=== PATIENT | female | born 1945 | race African-American/Black ===

== ENCOUNTER → 2017-07-27 | Outpatient (CLI) | payer MEDICARE ==
[2015-05-01 11:55] VITALS: BP 129/78
[~2017-07-27] MED LIST: AMLO5TAB2 PO; CIPR500T94 PO; GLUC100018 PO; MULT-460 PO; OXYB5TAB7 PO
--- NOTE | 2017-07-27 19:40 | CARD ---
APPROVED REPORT EXAM: Two-dimensional and M-mode echocardiogram with Doppler and color Doppler. Other Information Quality : Average Rhythm : NSR INDICATION Dyspnea Mitral Valve Disease 2D DIMENSIONS RVDd2.8 (2.9-3.5cm)Left Atrium(2D)2.9 (1.6-4.0cm) IVSd1.5 (0.7-1.1cm)Aortic Root(2D)2.7 (2.0-3.7cm) LVDd2.8 (3.9-5.9cm)LVOT Diameter1.9 (1.8-2.4cm) PWd1.5 (0.7-1.1cm)LVDs2.3 (2.5-4.0cm) SV12.4 mlLVEF(%)60.0 (>50%) Aortic Valve AoV Peak Deshawn.119.0cm/sAoV VTI22.3cm AO Peak GR.5.7mmHgLVOT Peak Deshawn.86.8cm/s LVOT VTI 16.55cmAO Mean GR.3mmHg VLAD (VMAX)2.27io6RNM (VTI)2.10cm2 Mitral Valve MV E Idcwojib90.8cm/sMV DECEL DAVF446no MV A Uhnicqun40.5cm/sMV MZU28ee E/A Ratio0.7MV A Lzhdehmg74ab MVA (PHT)2.71cm2 TDI E/Lateral E'9.1E/Medial E'14.5 Pulmonary Valve PV Peak Mxjkijnw25.0cm/sPV Peak Grad.3mmHg RVOT VTI15.1cm Tricuspid Valve TR P. Mkptdyvv641em/sRAP MTUWNZTW4htKc TR Peak Gr.03ncQqPGHH98qfPn LEFT VENTRICLE The left ventricle is normal size. There is mild concentric left ventricular hypertrophy. Left ventri savita systolic function is normal. The Ejection Fraction is 60%. There is normal LV segmental wall laine on. Tissue Doppler imaging reveals mild left ventricular diastolic dysfunction. Transmitral Doppler f low pattern is Grade I-abnormal relaxation pattern. There is no ventricular septal defect visualized. RIGHT VENTRICLE The right ventricle is normal size. The right ventricular systolic function is normal. ATRIA The left atrium size is normal. The right atrium size is normal. The interatrial septum is intact wit h no evidence for an atrial septal defect or patent foramen ovale as noted on 2-D or Doppler imaging. AORTIC VALVE The aortic valve is mildly calcified. The aortic valve is trileaflet. Doppler and Color Flow revealed no significant aortic regurgitation. There is no significant aortic valvular stenosis. MITRAL VALVE Mitral annular calcification is mild. The posterior mitral valve leafletappear myxomatous. There is n o mitral valve stenosis. Doppler and Color Flow revealed no mitral valve regurgitation noted. TRICUSPID VALVE The tricuspid valve is normal in structure. Doppler and Color Flow revealed mild tricuspid regurgitat ion. The PA pressure was estimated at 32 mmHg. There is no tricuspid valve stenosis. PULMONIC VALVE The pulmonic valve is not well visualized. Doppler and Color Flow revealed no pulmonic valvular regur gitation. There is no pulmonic valvular stenosis. GREAT VESSELS The aortic root is normal in size. The ascending aorta is normal in size. Normal pulmonary venous caitlin w (Doppler). The IVC is normal in size and collapses >50% with inspiration. PERICARDIAL EFFUSION There is no evidence of significant pericardial effusion. Critical Notification Critical Value: No <Conclusion> Left ventricle systolic function is normal. The Ejection Fraction is 60%. Tissue Doppler imaging reveals mild left ventricular diastolic dysfunction. Transmitral Doppler flow pattern is Grade I-abnormal relaxation pattern. There is mild concentric left ventricular hypertrophy. The left atrium size is normal. The right atrium size is normal. The aortic valve is mildly calcified. The aortic valve is trileaflet. Doppler and Color Flow revealed no significant aortic regurgitation. Doppler and Color Flow revealed no mitral valve regurgitation noted. Mitral annular calcification is mild. The posterior mitral valve leafletappear myxomatous. Doppler and Color Flow revealed mild tricuspid regurgitation. The PA pressure was estimated at 32 mmHg. The pulmonic valve is not well visualized. There is no evidence of significant pericardial effusion.
== END | disposition home or self-care (01) ==
LOC: ECHO 11:10
PROVIDERS: ATTEND Internal Medicine Cardiovascular Disease
DX: I08.1 Rheumatic disorders of both mitral and tricuspid valves (principal); R06.02 Shortness of breath
CPT/HCPCS: 93306

== ENCOUNTER → 2017-09-08 | Outpatient (CLI) | payer MEDICARE, BC ==
[2015-05-01 11:55] VITALS: BP 129/78
== END | disposition home or self-care (01) ==
LOC: LAB 11:07
PROVIDERS: ATTEND Orthopaedic Surgery Sports Medicine
DX: M25.561 Pain in right knee (principal)
CPT/HCPCS: 36415; 85651; 86140

== ENCOUNTER → 2018-02-01 | Outpatient (CLI) | payer MEDICARE, BC | END | disposition home or self-care (01) | LOC: ECHO 13:38 | DX: I08.1 Rheumatic disorders of both mitral and tricuspid valves (principal); I27.20 Pulmonary hypertension, unspecified | CPT/HCPCS: 93306 ==

== ENCOUNTER → 2018-08-19 | Outpatient (CLI) | payer MEDICARE, BC ==
[2015-05-01 11:55] VITALS: BP 129/78
[~2018-08-19] MED LIST changes: -AMLO5TAB2 PO; +AMLO5TAB7 PO
--- NOTE | 2018-08-22 13:21 | CARD ---
MR#: [id number] Date of Study: 08/19/2018 Ordering Physician: MENG DAVILA, Referring Physician: MENG DAVILA, Tech: Randi Olivia ANTHONY APPROVED REPORT EXAM: Two-dimensional and M-mode echocardiogram with Doppler and color Doppler. Other Information Quality : GoodHR: 93bpm Rhythm : NSR INDICATION Mitral Valve Disease 2D DIMENSIONS RVDd2.9 (2.9-3.5cm)Left Atrium(2D)3.2 (1.6-4.0cm) IVSd1.4 (0.7-1.1cm)Aortic Root(2D)2.6 (2.0-3.7cm) LVDd3.9 (3.9-5.9cm)LVOT Diameter1.8 (1.8-2.4cm) PWd0.8 (0.7-1.1cm)LVDs2.8 (2.5-4.0cm) FS (%) 28.5 %SV36.8 ml LVEF(%)55.0 (>50%) Aortic Valve AoV Peak Deshawn.140.3cm/sAoV VTI28.0cm AO Peak GR.7.9mmHgLVOT Peak Deshawn.89.0cm/s AO Mean GR.5mmHgAVA (VMAX)1.66cm2 VLAD (VTI)1.70cm2 Mitral Valve MV E Fphuhhtd186.8cm/sMV E Peak Gr.6mmHg MV DECEL QGDB254kgRM A Vhjzckai748.2cm/s MV E Mean Gr.3mmHgE/A Ratio0.9 MV A Wikhcyue306ts Pulmonary Valve PV Peak Zrlstidp08.7cm/s Tricuspid Valve TR P. Yanfadao682ef/sRAP SUJMNDNM3llWd TR Peak Gr.22biNxEFJW03wcTq LEFT VENTRICLE The left ventricle is normal size. Proximal septal thickening is noted. The left ventricular systolic function is normal and the ejection fraction is within normal range. The Ejection Fraction is 55%. T here is normal LV segmental wall motion. Transmitral Doppler flow pattern is Grade I-abnormal relaxat ion pattern. RIGHT VENTRICLE The right ventricle is normal size. There is normal right ventricular wall thickness. The right ventr icular systolic function is normal. ATRIA The left atrium size is normal. The right atrium size is normal. The interatrial septum is intact wit h no evidence for an atrial septal defect or patent foramen ovale as noted on 2-D or Doppler imaging. AORTIC VALVE The aortic valve is thickened but opens well. The aortic valve is trileaflet. Doppler and Color Flow revealed no significant aortic regurgitation. There is no significant aortic valvular stenosis. MITRAL VALVE Mitral annular calcification is mild to moderate. The mitral valve leaflets are thickened and calcifi ed. There is no evidence of mitral valve prolapse. There is no mitral valve stenosis. Doppler and Col or-flow revealed mild to moderate mitral regurgitation. TRICUSPID VALVE The tricuspid valve is normal in structure and function. Doppler and Color Flow revealed trace tricus pid regurgitation. The PA pressure was estimated at 21 mmHg. There is no tricuspid valve prolapse or vegetation. There is no tricuspid valve stenosis. PULMONIC VALVE The pulmonary valve is normal in structure Doppler and Color Flow revealed trace pulmonic valvular re gurgitation. There is no pulmonic valvular stenosis. GREAT VESSELS The aortic root is normal in size. The ascending aorta is normal in size. PERICARDIAL EFFUSION There is no evidence of significant pericardial effusion. Critical Notification Critical Value: No <Conclusion> The left ventricular systolic function is normal and the ejection fraction is within normal range. T he Ejection Fraction is 55%. Transmitral Doppler flow pattern is Grade I-abnormal relaxation pattern. Proximal septal thickening is noted. The left atrium size is normal. The right atrium size is normal. The aortic valve is thickened but opens well. The aortic valve is trileaflet. Doppler and Color-flow revealed mild to moderate mitral regurgitation. Mitral annular calcification is mild to moderate. The mitral valve leaflets are thickened and calcified. Doppler and Color Flow revealed trace tricuspid regurgitation. The PA pressure was estimated at 21 mmHg. Doppler and Color Flow revealed trace pulmonic valvular regurgitation. There is no evidence of significant pericardial effusion. Signed by : Meng Davila MD Electronically Approved : 08/22/2018 13:20:36
== END | disposition home or self-care (01) ==
LOC: ECHO 12:20
PROVIDERS: ATTEND Internal Medicine Cardiovascular Disease
DX: I34.0 Nonrheumatic mitral (valve) insufficiency (principal)
CPT/HCPCS: 93306

== ENCOUNTER → 2018-09-01 | Day surgery (SDC) | payer MEDICARE, BC ==
[~2018-09-01] MED LIST changes: +FURO-69 PO; +IV RINGERS,LACTATED 1000ML 1,000 ML IV SCH; +LIDOCAINE 1% PF 2 ML VIAL. ID PRN; +MIDAZOLAM HCL/PF 2 MG/2 ML VIAL. IV PRN; +POTA10TA12 PO; +PROPOFOL 20 ML IV ONE; +SIMV20TA3 PO; +fentaNYL PF VIAL 100 MCG/2 ML VIAL IV PRN
[2018-09-01 08:29] VITALS: BP 107/54
== END | disposition home or self-care (01) ==
LOC: ENDOS 06:13
PROVIDERS: ATTEND Internal Medicine Gastroenterology
DX: Z12.11 Encounter for screening for malignant neoplasm of colon (principal); K64.0 First degree hemorrhoids; I10 Essential (primary) hypertension; K21.9 Gastro-esophageal reflux disease without esophagitis; E78.00 Pure hypercholesterolemia, unspecified; M19.90 Unspecified osteoarthritis, unspecified site; Z79.899 Other long term (current) drug therapy; Z90.710 Acquired absence of both cervix and uterus; Z98.51 Tubal ligation status; Z98.890 Other specified postprocedural states; Z91.040 Latex allergy status; Z88.5 Allergy status to narcotic agent; Z85.3 Personal history of malignant neoplasm of breast; Z86.010 Personal history of colon polyps; Z82.49 Family history of ischemic heart disease and other diseases of the circulatory system; Z91.018 Allergy to other foods
CPT/HCPCS: G0105; J2704; 45378

== ENCOUNTER → 2020-06-12 | Outpatient (CLI) | payer MEDICARE, BC ==
[2018-09-01 08:29] VITALS: BP 107/54
[~2020-06-12] MED LIST changes: +AMLO5TAB10 PO; -AMLO5TAB7 PO; -IV RINGERS,LACTATED 1000ML 1,000 ML IV SCH; -LIDOCAINE 1% PF 2 ML VIAL. ID PRN; -MIDAZOLAM HCL/PF 2 MG/2 ML VIAL. IV PRN; +OXYB5TAB10 PO; -OXYB5TAB7 PO; -PROPOFOL 20 ML IV ONE; +SIMV20TA18 PO; -SIMV20TA3 PO; -fentaNYL PF VIAL 100 MCG/2 ML VIAL IV PRN
--- NOTE | 2020-06-12 12:13 | CARD ---
MR#: [id number] Date of Study: 06/12/2020 Ordering Physician: SENTHIL CRUZ, Referring Physician: SENTHIL CRUZ, Tech: Lissa Ann RDCS APPROVED REPORT EXAM: Two-dimensional and M-mode echocardiogram with Doppler and color Doppler. Other Information Quality : Good INDICATION Non STEMI 2D DIMENSIONS RVDd2.4 (2.9-3.5cm)Left Atrium(2D)3.1 (1.6-4.0cm) IVSd1.3 (0.7-1.1cm)Aortic Root(2D)2.5 (2.0-3.7cm) LVDd4.4 (3.9-5.9cm)LVOT Diameter2.0 (1.8-2.4cm) PWd1.3 (0.7-1.1cm)LVDs3.4 (2.5-4.0cm) FS (%) 22.7 %SV40.5 ml LVEF(%)45.8 (>50%) Aortic Valve AoV Peak Deshawn.145.0cm/sAoV VTI29.3cm AO Peak GR.8.4mmHgLVOT Peak Deshawn.87.0cm/s LVOT VTI 18.04cmAO Mean GR.5mmHg VLAD (VMAX)1.46yu3JZG (VTI)1.85cm2 Mitral Valve MV E Aqhyixli09.6cm/sMV DECEL KPXE941jk MV A Hwwdpbcd933.7cm/sMV EZA40aq E/A Ratio0.6MVA (PHT)6.43cm2 TDI E/Lateral E'16.2E/Medial E'15.6 Tricuspid Valve TR P. Bqdgbxyb368uz/sRAP BEWCRQRU7ywZt TR Peak Gr.35zmRsKJVW50ssOz Pulmonary Vein S1 Qdykrhmu27.5cm/sD2 Bwhxzdua12.6cm/s LEFT VENTRICLE The left ventricle is normal size. There is moderate concentric left ventricular hypertrophy. Left ve ntricle systolic function is mildly decreased. 45-50% There is mild global hypokinesis. Transmitral D oppler flow pattern is Grade I-abnormal relaxation pattern. RIGHT VENTRICLE The right ventricle is normal size. The right ventricular systolic function is normal. ATRIA The left atrium size is normal. The right atrium size is normal. The interatrial septum is intact wit h no evidence for an atrial septal defect or patent foramen ovale as noted on 2-D or Doppler imaging. AORTIC VALVE The aortic valve is calcified but opens well. Doppler and Color Flow revealed no significant aortic r egurgitation. There is no significant aortic valvular stenosis. MITRAL VALVE The mitral valve is calcified but opens well. Mitral annular calcification is mild. There is no evide nce of mitral valve prolapse. There is no mitral valve stenosis. Doppler and Color-flow revealed mild mitral regurgitation. TRICUSPID VALVE The tricuspid valve is normal in structure and function. Doppler and Color Flow revealed trace tricus pid regurgitation. The PA pressure was estimated at 31 mmHg. There is no tricuspid valve stenosis. PULMONIC VALVE The pulmonic valve is not well visualized. Doppler and Color Flow revealed mild pulmonic valvular reg urgitation. There is no pulmonic valvular stenosis. GREAT VESSELS The aortic root is normal in size. The ascending aorta is not well seen. The IVC is normal in size an d collapses >50% with inspiration. PERICARDIAL EFFUSION There is no evidence of significant pericardial effusion. Critical Notification Critical Value: No <Conclusion> Left ventricle systolic function is mildly decreased. 45-50% There is moderate concentric left ventricular hypertrophy. There is mild global hypokinesis. Doppler and Color Flow revealed trace tricuspid regurgitation. The PA pressure was estimated at 31 mm Hg. Signed by : Kwasi Lew, Electronically Approved : 06/12/2020 12:12:44
== END | disposition home or self-care (01) ==
LOC: ECHO 10:15
PROVIDERS: ATTEND Internal Medicine Cardiovascular Disease
DX: I08.8 Other rheumatic multiple valve diseases (principal)
CPT/HCPCS: 93306

== ENCOUNTER → 2020-06-14 | Outpatient (CLI) | payer MEDICARE, BC ==
[2018-09-01 08:29] VITALS: BP 107/54
[~2020-06-14] MED LIST changes: +REGADENOSON 0.4 MG/5 ML DISP.SYRIN. IV ONE
--- NOTE | 2020-06-14 10:17 | RAD ---
MR#: [id number] Date of Study: 06/14/2020 Ordering Physician: SENTHIL CRUZ, Referring Physician: SENTHIL CRUZ, Tech: Rubens Moya RDMS, [place] APPROVED REPORT Patient Location : OUT-PATIENT Indications Lower Extremity Edema : Bilateral Lesser Saphenous Veins (LSV) Significant venous reflux is noted in the Right LSV. Findings Grayscale images of the bilateral saphenofemoral junctions are grossly unremarkable. The bilateral g reater saphenous veins did not show any evidence of reflux. The left lesser saphenous vein does not show any reflux. The right lesser saphenous vein has 1.4 seconds of reflux noted. The right great saphenous vein measures 8 mm and the left great saphenous vein measures 6 mm. Critical Notification Critical Value: No <Conclusion> 1. Positive for reflux in the right lesser saphenous vein only Signed by : Kwasi Lew, Electronically Approved : 06/14/2020 10:17:21
--- NOTE | 2020-06-14 14:50 | RAD ---
MR#: [id number] Date of Study: 06/14/2020 Ordering Physician: SENTHIL CRUZ, Referring Physician: CATY KOWALSKI Tech: ZEB Dubose ARRT (R) (N) APPROVED REPORT Test Type: Pharmacological Stress Nurse/Tech: Jaja Briceño RFrederick Test Indications: MONTEIRO Cardiac History: Hypertension Medications: See Electronic Medical Record Medical History: breast CA Resting ECG: LBBB Resting Heart Rate: 78 bpm Resting Blood Pressure: 155/71mmHg Pretest Chest Pain: No chest pain Nurse/Tech Notes S1S2, lungs sound clear Consent: The procedure was explained to the patient in lay terms. Informed consent was witnessed. Pavel eout was entered into [employer]. History and Stress Test performed by ZEB Dubose ARRT (R) (N) Pharm. Details Pharmacologic stress testing was performed using 0.4mg per 5ml of regadenoson given intravenously ove r 7-10 seconds. Stress Symptoms Dyspnea POST EXERCISE Reason for Termination: Infusion complete Target HR: 124 Max HR: 122 bpm Max Blood Pressure: 152/77mmHg Blood Pressure response to exercise: Normal blood pressure response during stress. Chest Pain: No. Arrhythmia: No. ST Change: No. INTERPRETATION Stress EKG Conclusion: Non-diagnostic EKG due to baseline LBBB Imaging Protocol IMAGE PROTOCOL: Rest Tc-99m/stress Tc-99m 1 day Rest: Stress: Viability: Radiopharm.Tc99m TqzqunbzeBf97j Sestamibi Aoiz68aUz 33mCi Img Date 06/14/2020 06/14/2020 Inj-Img Zudn43lsq. 60min. Rest Admin Site:IV - Right HandAdministrator:ADRIANO Chaudhary Stress Admin Site: IV - Right HandAdministrator: ZEB Dubose, RENATE (R)(N) STRESS DATA End Diast. Vol.98.0mlAv. Heart Pijy224.0bpm End Syst. Vol.36.0mlCO Index BSA0.0L/min Myocardial Khwn874.0gEject. Ttuldrby91.0% Stress Rates Pk. Fill Rate5.13EDV/secLVtime Pk. Fill 155.18msec Pk. Empty Rate3.41ESV/secLVtime Pk. Eject91.43msec /3 Pk. Fill0.99EDV/sec Stress Scores Regional WT1.00Summed WT15.00 Regional WM0.00Summed WM11.00 The rest and stress images show normal perfusion, normal contraction and thickening. LV Perf. Quant 17 Seg. SSS8.00 17 Seg. SRS4.00 17 Seg. SDS4.00 Stress Defect Extent (% LAD)15.00Rest Defect Extent (% LAD)25.00Rev. Defect Extent (% LAD)0.00 Stress Defect Extent (% LCX) 15.00Rest Defect Extent (% LCX)0.00Rev. Defect Extent (% LCX)10.00 Stress Defect Extent (% RCA)2.20Rest Defect Extent (% RCA)0.00Rev. Defect Extent (% RCA)2.20 Stress Defect Extent (% KRIS)12.20Rest Defect Extent (% KRIS)11.50Rev. Defect Extent (% KRIS)3.90 Other Information Quality:Good Risk Assessment: Low Risk Conclusion 1. Nondiagnositic EKG due to LBBB. 2. Normal perfusion at stress/rest. 3. Low risk study. 4. EF > 60%. Signed by : Kwasi Lew, Electronically Approved : 06/14/2020 14:49:29
== END | disposition home or self-care (01) ==
LOC: NM 07:37
PROVIDERS: ATTEND Internal Medicine Cardiovascular Disease
DX: R22.43 Localized swelling, mass and lump, lower limb, bilateral (principal); R06.00 Dyspnea, unspecified; I10 Essential (primary) hypertension
CPT/HCPCS: 78452; 93017; 93970; A9500; J2785

== ENCOUNTER 2021-05-10 08:38 | Outpatient (CLI) | payer MEDICARE, BC ==
[~2021-05-10] VITALS: Ht 167.6 cm; Wt 85.9 kg
[2021-05-10] VITALS (10 sets, daily range): BP systolic 107–166; BP diastolic 57–79
[~2021-05-10 08:38] MED LIST changes: +AMLO-186 PO; -AMLO5TAB10 PO; -REGADENOSON 0.4 MG/5 ML DISP.SYRIN. IV ONE
--- NOTE | 2021-05-10 09:22 | PDOC ---
MODERATE SEDATION ASSESSMENT RISKS/ALTERNATIVES Risks/Alternatives Risks and alternatives of this type of sedation and procedure discussed with: RISK/ALTERNATIVES: Patient H & P ON CHART H & P H & P on chart and reviewed for co-morbid conditions and appropriate labs. H&P ON CHART: Yes STATUS PREG STATUS ASSESSED: N/A MEDS/ALLERGIES REVIEWED Meds/Allergies Reviewed Medications and Allergies including time and route of recently administered narcotics and sedatives. MEDS/ALLERGIES REVIEWED: Yes ASA RATING ASA RATING: II AIRWAY ASSESSMENT Airway Assessment Airway patency, oral function limitations, presence of caps, crowns, dentures, partials, and ability to extend neck assessed. AIRWAY ASSESSMENT: Yes MALLAMPATI SCORE MALLAMPATI SCORE: II PRE-SEDATION ASSESSMENT PRE-SEDATION ASSESSMENT: Yes SENTHIL CRUZ MD May 10, 2021 09:22
[2021-05-10 09:27] LABS: HEMATOCRIT 36.5 % (36.0-47.0); HEMOGLOBIN 11.9 g/dL (12.0-15.5); RED BLOOD COUNT 4.21 x10^6/uL (3.50-5.40); RED CELL DISTRIBUTION WIDTH 13.6 % (11.5-14.5); WHITE BLOOD COUNT 5.5 x10^3/uL (4.0-11.0)
[2021-05-10 09:35] LABS: CALCIUM 8.6 mg/dL (8.5-10.1); CREATININE 0.6 mg/dL (0.6-1.0); GFR 118.2; POTASSIUM 3.8 mmol/L (3.5-5.1)
[2021-05-10 09:36] LABS: PROTHROMBIN TIME PATIENT 13.7 SEC (11.7-14.0)
[2021-05-10] MEDS ORDERED: fentaNYL PF VIAL 100 MCG/2 ML VIAL ONE (09:39)
[2021-05-10] MEDS ORDERED: MIDAZOLAM HCL/PF 2 MG/2 ML VIAL. ONE ×2 (09:39→10:20)
[2021-05-10] MEDS ORDERED: fentaNYL PF VIAL 100 MCG/2 ML VIAL IV ONE (09:45)
[2021-05-10] MEDS ORDERED: MIDAZOLAM HCL/PF 2 MG/2 ML VIAL. IV ONE (09:45)
[2021-05-10] MEDS ORDERED: IODIXANOL 320 MG/ML 100 ML VIAL. IART ONE (09:45)
[2021-05-10] MEDS ORDERED: LIDOCAINE 1% Multi-Dose 20 ML VIAL. INJ ONE (09:45)
[2021-05-10] MEDS ORDERED: CONTRAST GIVEN. MC PRN (10:00)
[2021-05-10] MEDS ORDERED: LIDOCAINE 1% Multi-Dose 20 ML VIAL. ONE (10:03)
[2021-05-10] MEDS ORDERED: IODIXANOL 320 MG/ML 100 ML VIAL. ONE (10:03)
[2021-05-10] MEDS ORDERED: TOLT4CAP PO (10:04)
[2021-05-10] MEDS ORDERED: LOSA100T14 PO (10:04)
[2021-05-10] MEDS ORDERED: HYDR12.58 PO (10:04)
[2021-05-10] MEDS ORDERED: CHOL-5 PO (10:04)
[2021-05-10] MEDS ORDERED: CARV25TA2 PO (10:04)
[2021-05-10] MEDS ORDERED: HEPARIN for IV BOLUS 10,000 UNIT/10 ML VIAL. ONE (10:32)
[2021-05-10] MEDS ORDERED: HEPARIN for IV BOLUS 10,000 UNIT/10 ML VIAL. IV ONE (10:45)
--- NOTE | 2021-05-10 12:40 | CARD ---
MR#: [id number] Date of Study: 05/10/2021 Ordering Physician: SENTHIL BEDOLLA, Referring Physician: SENTHIL BEDOLLA, Tech: RT Wicho(R) APPROVED REPORT Technologist: RT Wicho(R) Nurse: Lila Zafar RN Procedure(s) performed: 1. Right and left heart catheterization, selective coronary angiography and left ventriculography 2. Instantaneous wave free ratio (IFR) measurement of left circumflex artery stenosis FLUORO TIME 4.8 MIN DOSE 90MCAH5 MODERATE SEDATION 50 MINS. CONTRAST 124ML INDICATION The indication(s) include : Refractory dyspnea on minor exertion. [facility] Clinical Frailty Scale [facility] Clinical Frailty Scale: Mildly Frail Heart Failure Heart Failure: No CASE TECHNIQUE IV conscious sedation was used throughout procedure with appropriate monitoring and was performed in the presence of a registered nurse who was an independent trained observer other than the physician p erforming the procedure. During this case, Fluoroscopy and low osmolar contrast were used for imaging . Specimen(s) Removed: No Estimated Blood loss: 20 cc's. PROCEDURE NARRATIVE After explaining the risk, benefits and alternative options, informed consent was obtained from patie nt. Patient was brought to the cardiac Electronic Scale Subassembler and her right groin was prepped and draped in the us ual fashion. 20 cc of 2% lidocaine was infiltrated into the skin and subcutaneous tissues for local anesthesia. Arterial and venous accesses were obtained in the right common femoral artery and vein r espectively and 6 and 8 Turkish sheaths inserted. A 7.5 Turkish [place]-R[place] catheter was then advanced u nder fluoroscopic guidance and intracardiac pressures, oxygen saturations and cardiac output by Arben method measured. Subsequently, 6 Turkish JL4 and 6 Turkish JR4 catheters were used to perform selectiv e angiography of the left and right coronary arteries. 6 Turkish pigtail catheter was used to perform left ventriculography. Since patient had angiographically borderline significant stenosis involving the ostial left circumfl ex artery, a decision was made to perform physiologic assessment using instantaneous wave free ratio (IFR) measurement. The left main coronary artery was engaged with a 6 Turkish XB 3.5 guide catheter a nd the stenosis in the ostial segment of the left circumflex artery was crossed with a [employer] Verr[employer] a pressure wire. iFR measurement was made which came back insignificant at 0.96. Hence no intervent ions were performed. Patient tolerated the procedure well. Hemostasis was achieved using Angio-Seal and manual compression. There were no immediate complications. A. RIGHT HEART CATHETERIZATION 1. Intracardiac pressures: Mean right atrial pressure 10 mmHg, right ventricular pressure 34/9 mmHg, pulmonary artery pressure 35/12 mmHg with mean PA pressure 19 mmHg and mean pulmonary capillary wedg e pressure 15 mmHg. No significant pulmonary hypertension noted. 2. Oxygen saturations: Right atrium 74.7%, pulmonary artery 72.1%, femoral arterial sheath 98.8%. N o evidence of intracardiac shunt. 3. Cardiac output by Arben method 4.3 L/min. B. LEFT HEART CATHETERIZATION 1. Hemodynamics: Normal left ventricular end-diastolic pressure of 11 mmHg. No pullback gradient ac ross the aortic valve. 2. Left ventriculography: Normal left ventricle systolic function with ejection fraction estimated a t 60%. No significant mitral regurgitation seen. 3. Coronary angiography: a. The left main coronary artery arose from the left sinus of Valsalva, gave rise to the left anteri or descending and left circumflex arteries and did not show any significant stenosis. b. The left anterior descending artery did not show any significant stenosis. c. The left circumflex artery showed 50 to 60% ostial segment stenosis which was physiologically ins ignificant based on IFR measurement of 0.96. d. The right coronary artery was a dominant vessel arising from the right sinus of Valsalva that did not show any significant stenosis. Conclusion 1. 50 to 60% stenosis involving the ostial segment of left circumflex artery, proven physiologically insignificant based on IFR measurement of 0.96. No significant lesions needing intervention were no acrlos. 2. Normal left ventricular systolic function with ejection fraction estimated at 60%. 3. No significant pulmonary hypertension. No evidence of intracardiac shunt. Recommendations Medical Therapy Signed by : Senthil Bedolla, Electronically Approved : 05/10/2021 12:39:49
--- NOTE | 2021-05-10 13:18 | NUR ---
At 1300, patient sat up in bed. Patient able to walk to restroom at 1315; minimal track ooze at groin site upon getting back into bed. Lunch at bedside. Will continue to assess site.
--- NOTE | 2021-05-10 14:14 | NUR ---
No bleeding at femoral site, PIV removed. No pain. VS stable. Instructions provided on site care, sedation. Patient verbalized understanding. Patient taken to sister's car via wheelchair by RN . All belongings w/ patient at time of d/c. No questions at time of d/c.
== END 2021-05-10 14:17 | disposition home or self-care (01) ==
LOC: CCL 08:38
PROVIDERS: ATTEND Internal Medicine Cardiovascular Disease
DX: R06.09 Other forms of dyspnea (principal); I25.10 Atherosclerotic heart disease of native coronary artery without angina pectoris; I10 Essential (primary) hypertension; E78.00 Pure hypercholesterolemia, unspecified; K21.9 Gastro-esophageal reflux disease without esophagitis; M19.90 Unspecified osteoarthritis, unspecified site; Z85.3 Personal history of malignant neoplasm of breast; Z98.51 Tubal ligation status; Z90.710 Acquired absence of both cervix and uterus; Z98.890 Other specified postprocedural states; Z91.040 Latex allergy status; Z88.5 Allergy status to narcotic agent; Z88.8 Allergy status to other drugs, medicaments and biological substances
CPT/HCPCS: 36415; 80048; 85027; 85610; 93460; 93571; 99152; 99153; C1769; C1773; C1892; J1644; J2250; J3010; J3490; Q9967; G0269

== ENCOUNTER → 2021-06-19 | Outpatient (CLI) | payer MEDICARE, BC ==
[2021-05-10 13:51] VITALS: BP 166/72
[~2021-06-19] MED LIST changes: +CARV25TA2 PO; +CHOL-5 PO; +HYDR12.58 PO; +LOSA100T14 PO; +TOLT4CAP PO
--- NOTE | 2021-06-19 16:36 | CARD ---
MR#: [id number] Date of Study: 06/19/2021 Ordering Physician: SENTHIL CRUZ, Referring Physician: SENTHIL CRUZ, Tech: Nighat Tay [facility] APPROVED REPORT EXAM: Two-dimensional and M-mode echocardiogram with Doppler and color Doppler. Other Information Quality : AverageHR: 78bpm Rhythm : RBBB INDICATION Mitral Valve Disease RISK FACTORS Hypertension Hyperlipidemia 2D DIMENSIONS RVDd2.6 (2.9-3.5cm)Left Atrium(2D)2.8 (1.6-4.0cm) IVSd0.9 (0.7-1.1cm)Aortic Root(2D)2.7 (2.0-3.7cm) LVDd5.1 (3.9-5.9cm)LVOT Diameter1.9 (1.8-2.4cm) PWd1.2 (0.7-1.1cm)LVDs3.8 (2.5-4.0cm) FS (%) 27.1 %SV66.4 ml LVEF(%)52.4 (>50%) Aortic Valve AoV Peak Deshawn.144.6cm/sAoV VTI27.5cm AO Peak GR.8.4mmHgLVOT Peak Deshawn.83.3cm/s LVOT VTI 15.33cmAO Mean GR.5mmHg VLAD (VMAX)1.30xe5VDI (VTI)1.64cm2 Mitral Valve MV E Leltttix81.2cm/sMV DECEL GRIF200nm MV A Usczkxif816.0cm/sMV E Mean Gr.3mmHg MV SAH34izG/A Ratio0.7 MVA (PHT)3.66cm2 TDI E/Lateral E'14.5E/Medial E'17.7 Pulmonary Valve PV Peak Eoiihyjx055.4cm/sPV Peak Grad.4mmHg Tricuspid Valve TR P. Vvgfhnvg587vy/sRAP KHVJLJED8drJn TR Peak Gr.91yyWoIJXU22wlAo LEFT VENTRICLE The left ventricle is normal size. There is borderline to mild concentric left ventricular hypertroph y. The left ventricular systolic function is normal and the ejection fraction is within normal range. The Ejection Fraction is 50-55%. Wall motion consistent with condution abnormality. Otherwise, gross ly normal wall motion. Transmitral Doppler flow pattern is Grade I-abnormal relaxation pattern. RIGHT VENTRICLE The right ventricle is normal size. There is normal right ventricular wall thickness. The right ventr icular systolic function is normal. ATRIA The left atrium size is normal. The right atrium size is normal. The interatrial septum is intact wit h no evidence for an atrial septal defect or patent foramen ovale as noted on 2-D or Doppler imaging. AORTIC VALVE The aortic valve is normal in structure and function. Doppler and Color Flow revealed no significant aortic regurgitation. There is no significant aortic valvular stenosis. Calculated aortic valve area is 2.04 cm2 with maximum pressure gradient of 10 mmHg and mean pressure gradient of 6 mmHg. MITRAL VALVE Mitral annular calcification is mild to moderate. There is no evidence of mitral valve prolapse. Ther e is no mitral valve stenosis. Doppler and Color-flow revealed trace mitral regurgitation. TRICUSPID VALVE The tricuspid valve is normal in structure and function. Doppler and Color Flow revealed trace tricus pid regurgitation with an estimated PAP of 30 mmHg. There is no tricuspid valve stenosis. PULMONIC VALVE The pulmonic valve is not well visualized. Doppler and Color Flow revealed trace pulmonic valvular re gurgitation. There is no pulmonic valvular stenosis. GREAT VESSELS The aortic root is normal in size. The IVC is normal in size and collapses >50% with inspiration. PERICARDIAL EFFUSION There is no evidence of significant pericardial effusion. Critical Notification Critical Value: No <Conclusion> The left ventricular systolic function is normal and the ejection fraction is within normal range. Th e Ejection Fraction is 50-55%. Wall motion consistent with condution abnormality. Otherwise, grossly normal wall motion. Signed by : Kwasi Lew, Electronically Approved : 06/19/2021 16:36:09
== END ==
LOC: ECHO 09:39
PROVIDERS: ATTEND Internal Medicine Cardiovascular Disease
DX: I34.0 Nonrheumatic mitral (valve) insufficiency (principal); I10 Essential (primary) hypertension; I51.7 Cardiomegaly
CPT/HCPCS: 93306

== ENCOUNTER → 2021-08-30 | Outpatient (CLI) | payer MEDICARE, BC ==
[2021-05-10 13:51] VITALS: BP 166/72
--- NOTE | 2021-08-30 14:53 | RAD ---
EXAMINATION: XR CHEST 2V CLINICAL HISTORY: Dyspnea on exertion EXAM DATE/TIME: 08/30/2021 10:11 AM COMPARISON: None FINDINGS: Lines, Tubes, and Devices: None. Cardiomediastinal Silhouette: Heart size at upper limits of normal. Aortic atherosclerotic calcificat ion. Lungs and Pleura: Minimal bibasilar subsegmental atelectasis and/or scarring. No evidence of focal ai rspace consolidation or pleural effusion. Pulmonary vasculature unremarkable. Bones and Soft Tissues: Degenerative changes in the thoracic spine. IMPRESSION: No evidence of acute cardiopulmonary abnormality. Electronically signed by: Kun Nicolas DO (08/30/2021 2:51 PM) LARISA
== END ==
LOC: RAD 09:48
PROVIDERS: ATTEND Family Medicine
DX: R06.00 Dyspnea, unspecified (principal); I70.0 Atherosclerosis of aorta; M47.814 Spondylosis without myelopathy or radiculopathy, thoracic region
CPT/HCPCS: 71046

== ENCOUNTER → 2021-11-12 | Outpatient (CLI) | payer MEDICARE, BC ==
[2021-05-10 13:51] VITALS: BP 166/72
[~2021-11-12] MED LIST changes: +IOHEXOL 350 MG/ML 100 ML VIAL. IV ONE
[2021-11-12 09:40] LABS: CREATININE 0.6 mg/dL (0.6-1.0); GFR 118.2
--- NOTE | 2021-11-12 11:09 | RAD ---
CTA CHEST INDICATION: DYSPNEA Comparison: Chest radiograph 08/30/2021. CT chest 09/19/2014. TECHNIQUE: Following the uneventful administration of intravenous contrast, 90 cc Omnipaque 350, axia l CT sections were obtained through the lungs and upper abdomen. Multiplanar reconstructions and MIP images were obtained. RS compliance statement: One or more of the following individualized dose reduction techniques were utilized for this examinat ion: 1. Automated exposure control 2. Adjustment of the mA and/or kV according to patient size 3. Use of iterative reconstruction technique FINDINGS: Pulmonary arteries: No evidence of pulmonary thromboembolic disease. Dilated pulmonary trunk measures 3.6 cm. Lungs and Airways: Few left lower lobe centrilobular groundglass nodules. Mild left basilar subpleura l opacities. Right lower lobe clustered noncalcified nodules stable since 2013 and presumed benign. B ibasilar subsegmental atelectasis. Calcified pulmonary granulomas. Mild bibasilar bronchiolectasis. Pleura: The pleural spaces are normal. Heart and Mediastinum: The visualized thyroid is prominent without discrete nodule. No axillary or mckay praclavicular lymphadenopathy. No mediastinal, hilar or retrocrural lymphadenopathy. Normal cardiac s ize. No pericardial effusion. Coronary artery atherosclerotic disease. The great vessels of the thora x are normal. Abdomen: Limited images through the upper abdomen show no abnormality of the visualized organs. Bones and Soft Tissues: Degenerative changes of the spine. Left mastectomy. IMPRESSION: 1. No evidence of pulmonary thromboembolic disease. 2. There are a couple of small subpleural opacities in the left lower lobe with some centrilobular gr oundglass nodules, possibly an infectious bronchiolitis or aspiration bronchiolitis. Electronically signed by: Chavo Cook MD (11/12/2021 11:06 AM) [id number]
== END ==
LOC: CT 08:57
PROVIDERS: ATTEND Internal Medicine Pulmonary Disease
DX: R91.8 Other nonspecific abnormal finding of lung field (principal); J84.10 Pulmonary fibrosis, unspecified; J98.11 Atelectasis; J47.9 Bronchiectasis, uncomplicated; I25.10 Atherosclerotic heart disease of native coronary artery without angina pectoris; R06.00 Dyspnea, unspecified; M47.819 Spondylosis without myelopathy or radiculopathy, site unspecified; Z90.12 Acquired absence of left breast and nipple
CPT/HCPCS: 36415; 71275; 82565; 84520; Q9967